=== PATIENT | male | born 1935 | race Caucasian/White ===

== ENCOUNTER 2016-11-17 12:04 | Emergency (ER) | payer MEDICARE ==
[2016-11-17 12:17] VITALS: TEMP 98.6
[2016-11-17] MEDS ORDERED: SODIUM CHLORIDE 0.9% (FLUSH) 10 ML SYG IV PRN (12:48)
--- NOTE | 2016-11-17 13:03 | ED.PDOC ---
History of Present Illness - General Chief Complaint: Skin/Abrasion/Tear Stated Complaint: Left chest wall skin opening Time Seen by Provider: 11/17/16 12:16 Source: patient, family Exam Limitations: no limitations - History of Present Illness Initial Comments: PT PRESENTS TO THE ED AFTER NOTICING A HOLE IN HIS LEFT CHEST WALL THIS AM. THE HOLE EXPOSES THE CORNER OF THE PACEMAKER/DEFIB IN HIS CHEST. PT DENIES, PAIN, SWELLING, BLEEDING, OR DRAINAGE TO THE AREA. PT DENIES ANY CHEST WALL TRAUMA. PT DENIES CHEST PAIN, FEVER, CHILLS, OR INCREASED SOB. PT SEES DR. BELLAMY FOR CARDIOLOGY. PT HAD PACEMAKER/DEFIB REPLACED IN JULY OF 2016. Timing/Duration: this morning Severity: mild Location: torso - LEFT UPPER CHEST WALL Improving Factors: nothing Worsening Factors: nothing Associated Symptoms: denies symptoms Allergies/Adverse Reactions: Allergies Lorazepam [From Ativan] Allergy (Verified 11/17/16 12:21) Home Medications: Ambulatory Orders Albuterol Sulfate Nebs [Proventil Nebs] 2.5 mg INH QID 11/17/16 Aspirin [Aspirin Adult Low Dose] 81 mg PO DAILY 11/17/16 Carvedilol [Coreg] 12.5 mg PO BID 11/17/16 Clonazepam 0.5 mg PO Q6HR PRN 11/17/16 Ramipril 5 mg PO DAILY 11/17/16 Sertraline HCl [Zoloft] 200 mg PO BID 11/17/16 Simvastatin [Zocor] 40 mg PO DAILY 11/17/16 Review of Systems - Review of Systems Constitutional: Denies: chills, fever EENTM: Denies: nose congestion, throat pain Respiratory: Denies: cough, short of breath Cardiology: Denies: chest pain, palpitations Gastrointestinal/Abdominal: Denies: abdominal pain, diarrhea, vomiting Skin: States: see HPI, other - SKIN TEAR TO THE LEFT CHEST. Denies: rash Neurological: States: no symptoms reported Endocrine: States: no symptoms reported Hematologic/Lymphatic: States: no symptoms reported Past Medical History (General) - Patient Medical History Hx Stroke: No Hx of COPD: Yes Hx Cardiac Disorders: Yes Hx Congestive Heart Failure: No Hx Pacemaker: Yes - defib/pacemaker Hx Diabetes: No Surgical History: cholecystectomy - Vaccination History Hx Influenza Vaccination: Yes - 2016 Hx Pneumococcal Vaccination: - unknown - Social History Hx Tobacco Use: Yes Hx Chewing Tobacco Use: Yes - Female History Patient is a Female of Child Bearing Age (10 -59 yrs old): No Family Medical History - Family History Father Living Status: Hx Cardiac Disease: Yes Physical Exam - Physical Exam General Appearance: Alert, Comfortable, Frail, No apparent distress Eyes, Ears, Nose, Throat Exam: normal ENT inspection Neck: full range of motion, normal inspection Cardiovascular/Chest: regular rate, rhythm, no murmur Respiratory: chest non-tender - 1CM DIAMETER SKIN TEAR TO THE LEFT CHEST WALL, EXPOSING THE CORNER OF THE PACEMAKER/DEFIB DEVICE, NO SWELLING, NO ERYTHEMA, NO DRAINAGE, NO BLEEDING NOTED., no respiratory distress, no accessory muscle use, decreased breath sounds, wheezing - FAINT Gastrointestinal/Abdominal: non tender, soft Extremity: normal inspection Neurologic: alert, normal mood/affect, oriented x 3 Skin Exam: warm/dry, normal color Skin Problem Location: torso Progress - Progress Progress: 11/17/16 13:[address] BELLAMY WHO ADVISES TRANSFER TO [facility] FOR EVALUATION. - Results/Orders Results/Orders: 11/17/16 12:45 EKG STAT 11/17/16 12:48 IV Care:Saline Lock per Protoc QSHIFT Telemetry .ONCE Pulse Ox Stat Laboratory Results - last 24 hr 11/17/16 12:48 WBC 6.9 RBC 4.16 L Hgb 12.4 L Hct 36.6 L MCV 87.8 MCH 29.8 MCHC 33.8 RDW 14.0 Plt Count 189 MPV 7.6 Absolute Neuts (auto) 4.20 Absolute Lymphs (auto) 1.70 Absolute Monos (auto) 0.60 Absolute Eos (auto) 0.30 Absolute Basos (auto) 0.10 Neutrophils % 60.2 Lymphocytes % 25.1 Monocytes % 8.5 Eosinophils % 5.0 Basophils % 1.2 PT 10.9 INR 0.960 PTT (SP) 34.2 Sodium 138 Potassium 3.9 Chloride 101 Carbon Dioxide 31 Anion Gap 9.9 L BUN 18 Creatinine 0.71 BUN/Creatinine Ratio 25.4 H Random Glucose 104 Serum Osmolality 277.9 Calcium 8.8 Magnesium 2.2 Creatine Kinase 80 CK-MB (CK-2) 4.1 CK-MB (CK-2) % Not Reportable Troponin I 0.02 B-Natriuretic Peptide 110.0 H - EKG/XRAY/CT EKG: Sinus - AV SEQUENTIAL PACED RHYTHM @ 61BPM, , Unchanged from - Oct Comments: ND 158, QRS 204, QTC 525 Departure - Departure Clinical Impression: Chest wall fistula, Cardiac pacemaker in situ Time of Disposition: 13:10 Disposition: Transfer to Hospital Condition: Good Departure Forms: ED Discharge - Pt. Copy, Patient Portal Self Enrollment Referrals: Moris Yang MD [Primary Care Provider] - 1-2 Weeks Home Medications: Ambulatory Orders Albuterol Sulfate Nebs [Proventil Nebs] 2.5 mg INH QID 11/17/16 Aspirin [Aspirin Adult Low Dose] 81 mg PO DAILY 11/17/16 Carvedilol [Coreg] 12.5 mg PO BID 11/17/16 Clonazepam 0.5 mg PO Q6HR PRN 11/17/16 Ramipril 5 mg PO DAILY 11/17/16 Sertraline HCl [Zoloft] 200 mg PO BID 11/17/16 Simvastatin [Zocor] 40 mg PO DAILY 11/17/16 Transfer to Outside Facility - Transfer Information Accepting Provider:: DR. WESTFALL Accepting Facility: [facility] Reason for Transfer: required specialist not available
--- NOTE | 2016-11-17 13:26 | RAD ---
EXAM DESCRIPTION: XR CHEST 2 VIEWS CLINICAL HISTORY: pacemaker erosion through skin COMPARISON: October 31, 2013 FINDINGS: Two-view chest x-ray shows cardiomediastinal silhouette and pulmonary vasculature to be within normal limits. Postsurgical changes from sternotomy are seen. Multiple lead left subclavian transvenous cardiac pacer defibrillator is seen in place with generator pack over the left mid chest. Left thoracotomy changes are again seen with surgical clips in the left mid upper chest. The lungs are hyperinflated. Chronic blunting probably representing chronic pleural thickening in the left costophrenic angle is seen with mild elevation of the hemidiaphragm. Bilateral interstitial nodular changes in the lung apices with apical pleural thickening is seen. Mild disc degenerative changes of the spine. IMPRESSION: Emphysematous changes to the chest are seen. Chronic changes to the chest are noted. No interval change. Electronically signed by: Mitchell Camacho MD 11/17/2016 13:24
[2016-11-17 13:30] VITALS: BP 126/60; O2SAT 99
== END 2016-11-17 13:50 | disposition short-term general hospital (02) ==
LOC: ER 12:04
DX: J86.0 Pyothorax with fistula (principal); J44.9 Chronic obstructive pulmonary disease, unspecified; Z95.810 Presence of automatic (implantable) cardiac defibrillator; Z88.8 Allergy status to other drugs, medicaments and biological substances; Z79.82 Long term (current) use of aspirin; Z79.899 Other long term (current) drug therapy; Z87.891 Personal history of nicotine dependence

== ENCOUNTER 2016-12-19 14:25 | Observation (INO) | payer MEDICARE ==
[2016-12-19] MEDS ORDERED: SODIUM CHLORIDE 0.9% (FLUSH) 10 ML SYG IV PRN ×2 (14:40→18:30)
[2016-12-19] MEDS ORDERED: IPRATROPIUM/ALBUTEROL 3 ML VIAL INH ONE (14:40)
--- NOTE | 2016-12-19 15:05 | RAD ---
EXAM DESCRIPTION: Chest,1 View CLINICAL HISTORY: 81 years Male, SOB COMPARISON: November 17, 2016 TECHNIQUE: AP portable chest FINDINGS: Chronic changes of emphysema are present. There is volume loss on the left. There is blunting of the left costophrenic angle. Multilead pacing device is observed. IMPRESSION: 1. Chronic changes, no acute process Electronically signed by: Michoacano Santos MD 12/19/2016 3:05 PM [facility] [employer]PER[employer]
[2016-12-19] MEDS ORDERED: MAGNESIUM SULFATE PREMIX 2GM 2 GM in PREMIX BAG 1 BAG IVPB ONE (15:28)
[2016-12-19] MEDS ORDERED: methylPREDNISolone SODIUM SUC 125 MG/2 ML VIAL IV ONE (15:28)
[2016-12-19] MEDS ORDERED: IPRATROPIUM/ALBUTEROL 3 ML VIAL NEB ONE (15:28)
[2016-12-19] MEDS ORDERED: MAGNESIUM SULFATE PREMIX 2GM 50 ML IVPB ONE (15:40)
--- NOTE | 2016-12-19 16:17 | ED.PDOC ---
History of Present Illness - General Chief Complaint: Respiratory Problem Stated Complaint: shortness of breath Time Seen by Provider: 12/19/16 14:40 Source: patient, family - History of Present Illness Initial Comments: PT COMPLAINS OF PROGRESSIVELY WORSENING SOB AND COUGH DESPITE NEB TX AND HOME O2. PT RECENTLY DISCHARGED FROM [facility] AFTER A [facility] ADMISSION SECONDARY TO PACEMAKER SITE INFECTION. Severity: moderate Possible Cause: chronic episodes Improving Factors: immobilization Worsening Factors: medication Associated Symptoms: cough Allergies/Adverse Reactions: Allergies Lorazepam [From Ativan] Allergy (Verified 12/19/16 14:40) Home Medications: Ambulatory Orders Albuterol Sulfate Nebs [Proventil Nebs] 2.5 mg INH QID 11/17/16 Aspirin [Aspirin Adult Low Dose] 81 mg PO DAILY 11/17/16 Carvedilol [Coreg] 12.5 mg PO BID 11/17/16 Clonazepam 0.5 mg PO Q6HR PRN 11/17/16 Ramipril 5 mg PO DAILY 11/17/16 Sertraline HCl [Zoloft] 100 mg PO BID 11/17/16 Simvastatin [Zocor] 40 mg PO DAILY 11/17/16 Aclidinium [place] [Tudorza Pressair] 400 mcg IN DAILY 12/19/16 Review of Systems - Review of Systems Constitutional: Denies: chills, fever EENTM: Denies: ear pain, throat pain Respiratory: States: see HPI, cough, short of breath Cardiology: Denies: chest pain, palpitations Gastrointestinal/Abdominal: Denies: nausea, vomiting Musculoskeletal: Denies: joint pain, joint swelling Skin: Denies: change in color, rash Neurological: States: no symptoms reported Endocrine: States: no symptoms reported Hematologic/Lymphatic: States: no symptoms reported Past Medical History (General) - Patient Medical History Hx Stroke: No Hx of COPD: Yes Hx Cardiac Disorders: Yes Hx Congestive Heart Failure: No Hx Pacemaker: Yes - defib/pacemaker Hx Diabetes: No Surgical History: pacemaker - Vaccination History Hx Influenza Vaccination: Yes - 2016 Hx Pneumococcal Vaccination: - unknown - Social History Hx Tobacco Use: Yes Hx Chewing Tobacco Use: Yes - Activities of Daily Living Hospice Agency (if applicable):: None - Female History Patient is a Female of Child Bearing Age (10 -59 yrs old): No Patient : No Family Medical History - Family History Father Living Status: Hx Cardiac Disease: Yes Physical Exam - Physical Exam General Appearance: Alert, Frail Eyes, Ears, Nose, Throat Exam: normal ENT inspection, pharynx normal Neck: full range of motion, normal inspection Respiratory: decreased breath sounds, wheezing Cardiovascular/Chest: regular rate, rhythm, no murmur Gastrointestinal/Abdominal: non tender, soft Extremity: normal range of motion, non-tender, normal inspection Neurologic: alert, normal mood/affect, oriented x 3 Skin Exam: normal color, warm/dry Progress - Progress Progress: 12/19/16 16:18 PT REPORTS SOME IMPROVEMENT AFTER DUONEB BY EMS AND DUONEB IN THE ED. PTS BREATH SOUNDS REMAIN DIMINISHED ON EXAM. ADDITIONAL NEB TX ORDERED ALONG WITH IV MAG, IV SOLUMEDROL. LABS AND XRAY FINDINGS DISCUSSED WITH PT WHO AGREES WITH PLAN TO ADMIT FOR FURTHER OBSERVATION AND TREATMENT. - Results/Orders Results/Orders: Laboratory Tests 12/19/16 14:55 WBC 7.8 RBC 3.54 L Hgb 10.4 L Hct 30.9 L MCV 87.4 MCH 29.3 MCHC 33.6 RDW 14.2 Plt Count 157 MPV 7.3 L Absolute Neuts (auto) 6.20 Absolute Lymphs (auto) 0.90 L Absolute Monos (auto) 0.60 Absolute Eos (auto) 0.00 Absolute Basos (auto) 0.00 Neutrophils % 79.3 H Lymphocytes % 11.9 L Monocytes % 8.3 Eosinophils % 0.2 L Basophils % 0.3 Sodium 137 Potassium 3.5 L Chloride 95 L Carbon Dioxide 33 H Anion Gap 12.5 BUN 13 Creatinine 0.64 BUN/Creatinine Ratio 20.3 H Random Glucose 105 Serum Osmolality 274.3 L Calcium 8.6 Total Bilirubin 0.4 AST 56 H ALT 30 Alkaline Phosphatase 49 B-Natriuretic Peptide 267.0 H* Serum Total Protein 6.6 Albumin 3.3 Globulin 3.3 Albumin/Globulin Ratio 1.0 L - EKG/XRAY/CT EKG: LBBB - PACED RHYTHM @80BPM, [place] 166, QRS 204, QTC 576 Xray Comments: CXR: NO ACUTE DISEASE PER RAD Departure - Departure Clinical Impression: COPD exacerbation Time of Disposition: 16:22 Disposition: Admit Patient Condition: Fair Departure Forms: ED Discharge - Pt. Copy, Patient Portal Self Enrollment Home Medications: Ambulatory Orders Albuterol Sulfate Nebs [Proventil Nebs] 2.5 mg INH QID 11/17/16 Aspirin [Aspirin Adult Low Dose] 81 mg PO DAILY 11/17/16 Carvedilol [Coreg] 12.5 mg PO BID 11/17/16 Clonazepam 0.5 mg PO Q6HR PRN 11/17/16 Ramipril 5 mg PO DAILY 11/17/16 Sertraline HCl [Zoloft] 100 mg PO BID 11/17/16 Simvastatin [Zocor] 40 mg PO DAILY 11/17/16 Aclidinium [place] [Tudorza Pressair] 400 mcg IN DAILY 12/19/16 Decision To Admit - Decistion To Admit Decision to Admit Reason: Admit from ER Decision to Admit Date: 12/19/16 - CASE DISCUSSED WITH DR. DIAL Decision to Admit Time: 16:22
--- NOTE | 2016-12-19 16:32 | HP ---
HISTORY OF PRESENT ILLNESS: This 81 year-old white male is admitted to the hospital from the Emergency Room after noting worsening shortness of breath for the last 3 or 4 days. He apparently lives at home alone with a dog. He had a significant problem a month ago when he came to the Emergency Room when the pocket of his newly placed pacemaker apparently had eroded and required special wound care at [place]. He was subsequently discharged a few days ago home and now has been noticing increasing cough with whitish sputum for the last 3 days. He is on evening oxygen while he is asleep. He takes medication nebulizers. He especially gets more shortness of breath when he gets "aggravated." He has had no fever or chills. He has been under stress with his having about 6 months ago. She apparently was an invalid that he spent most of the last 3 or 4 years caring for. His appetite has decreased. He has been losing some weight. He is admitted to the hospital for stabilization, reevaluation and observation overnight. PAST MEDICAL HISTORY: 1. Significant emphysema. 2. Mild congestive heart failure in the past. PAST SURGICAL HISTORY: 1. Gallbladder removal by Dr. Owen. 2. Half of his left lung removed in 1998 because of lung cancer with no required chemotherapy or radiation afterwards after it was completely removed. CURRENT MEDICATIONS: Please refer to nurses' notes for a list of verified home medications. ALLERGIES: LORAZEPAM. FAMILY HISTORY: Positive for coronary artery disease, strokes and cancer. 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 REVIEW OF SYSTEMS: Some weight loss recently. HEENT: No significant hearing or vision disturbances. LUNGS: Shortness of breath with chronic cough and whitish sputum production more so in the last 3 days. CARDIOVASCULAR: No significant chest pains or palpitations. ABDOMEN: No nausea or vomiting, diarrhea or blood in the stools. GENITOURINARY: No dysuria. EXTREMITIES: Fairly strong with no significant edema. NEUROLOGIC: No weaknesses focal but he does express generalized weakness. PHYSICAL EXAMINATION: VITAL SIGNS: Temperature up to 100.2, pulse 79, blood pressure 137/73, respirations 28, pulse oximetry 86% on room air. GENERAL: The patient is fairly alert, awake and communicative. HEENT: Unremarkable. NECK: No carotid bruits. CHEST: Lungs have diminished breath sounds which are fairly equal on both sides with occasional rhonchi in the lateral lung vasques. CARDIOVASCULAR: Tones are regular, slightly distant. ABDOMEN: Soft with no organomegaly, masses or tenderness. EXTREMITIES: No significant edema. Fairly good though slightly decreased muscle tone. NEUROLOGIC: No focal neurological deficits. LABORATORY: White count 7,800, hemoglobin 10.4, neutrophils 79%. Chemistries showed potassium low at 3.5, CO2 high at 33, BUN 13, creatinine 0.64, glucose 105. Beta natriuretic peptide 267, albumin 3.3. Urine pending. Blood culture pending. Chest x-ray shows advanced chronic obstructive pulmonary disease with no other acute findings noted. ASSESSMENT: 1. Chronic obstructive pulmonary disease with an acute exacerbation requiring bronchodilators, pulmonary hygiene, corticosteroid administration and antibiotics. 2. Hypokalemia with supplementation started. 3. Mild congestive heart failure with elevated BNP. 4. Febrile illness. 5. Acute bronchitis. PLAN: The patient will be continued on Azithromycin and Rocephin as well as tapering doses of corticosteroids. Potassium supplements. Evaluate with ambulation study by Respiratory Therapy in the morning with early ambulation. Reevaluate at that time. Will have followup with Dr. Yang in the clinic when clinically stable. #[id number] [facility]
[2016-12-19] MEDS ORDERED: MAGNESIUM HYDROXIDE 30 ML UD PO PRN (18:30)
[2016-12-19] MEDS ORDERED: LEVALBUTEROL NEBS 1.25 MG/3 ML VIAL INH PRN (18:30)
[2016-12-19] MEDS ORDERED: HYDROcodone 5MG/APAP 325MG 1 EA TAB PO PRN (18:30)
[2016-12-19] MEDS ORDERED: IV SET AND CAP CHANGE INJ INJ SCH (18:30)
[2016-12-19] MEDS ORDERED: KCL 40MEQ/NS 1,000 ML IVS PRN (18:39)
[2016-12-19] MEDS ORDERED: NICOTINE PATCH 14 MG TD PRN (18:41)
[2016-12-19] MEDS ORDERED: AZITHROMYCIN 250 MG TAB PO SCH (19:00)
[2016-12-19] MEDS ORDERED: SODIUM CHL 0.9% 50ML MIN-BAG+ 50 ML IVPB ONE ×2 (19:18→20:51)
[2016-12-19] MEDS ORDERED: cefTRIAXone SODIUM 1 GM VIAL ONE ×2 (19:18→20:51)
[2016-12-19] MEDS: cefTRIAXone SODIUM 1 GM in SODIUM CHL 0.9% 50ML MIN-BAG+ 50 ML IVPB SCH (19:27)
[2016-12-19] MEDS: POTASSIUM CHLORIDE 10 MEQ TAB PO SCH (19:28)
[2016-12-19] MEDS: IPRATROPIUM/ALBUTEROL 3 ML VIAL INH SCH (19:50)
[2016-12-19] MEDS: CARVEDILOL 12.5 MG TAB PO SCH (21:03)
[2016-12-19] MEDS: SERTRALINE HCL 50 MG TAB PO SCH (21:03)
[2016-12-20] MEDS ORDERED: OMEPRAZOLE CAP 20 MG CAP PO SCH (06:30)
[2016-12-20] MEDS: cefTRIAXone SODIUM 1 GM in SODIUM CHL 0.9% 50ML MIN-BAG+ 50 ML IVPB SCH (06:46)
[2016-12-20] MEDS ORDERED: SODIUM CHL 0.9% 50ML MIN-BAG+ 0 ML IVPB ONE (07:53)
[2016-12-20] MEDS ORDERED: cefTRIAXone SODIUM 1 GM VIAL ONE (07:54)
[2016-12-20] MEDS: POTASSIUM CHLORIDE 10 MEQ TAB PO SCH (08:11)
[2016-12-20] MEDS ORDERED: SODIUM CHLORIDE 0.9% 10 ML VIAL IV PRN (08:23)
[2016-12-20] MEDS: IPRATROPIUM/ALBUTEROL 3 ML VIAL INH SCH (08:50)
[2016-12-20] MEDS ORDERED: ASPIRIN EC 81 MG TAB PO SCH (09:00)
[2016-12-20] MEDS ORDERED: RAMIPRIL 5 MG CAP PO SCH (09:00)
[2016-12-20] MEDS ORDERED: predniSONE 20 MG TAB PO SCH (09:00)
[2016-12-20] MEDS: SERTRALINE HCL 50 MG TAB PO SCH (09:07)
[2016-12-20] MEDS: CARVEDILOL 12.5 MG TAB PO SCH (09:08)
[2016-12-20 11:30] VITALS: BP 126/63; TEMP 98.3; O2SAT 98
--- NOTE | 2016-12-20 14:22 | DS ---
DISCHARGE DIAGNOSIS: 1. Chronic obstructive pulmonary disease with an acute exacerbation requiring bronchodilators, pulmonary hygiene, corticosteroid administration and antibiotics. 2. Febrile illness, probably related to an underlying acute bronchitis. 3. Hypokalemia, improved after supplementation. 3. Mild congestive heart failure with elevated beta natriuretic peptide. HISTORY OF PRESENT ILLNESS: This 81-year-old, white male was admitted to the hospital from the Emergency Room because of worsening shortness of breath and cough for the last 3 or 4 days. He lives by himself and requires currently significant help and his family is present to try to assist with his ongoing care. He recently had erosion of a pacemaker pocket requiring special wound care in [place]. He has been under pressure and stress with the of his in the last 6 months. He was admitted to the hospital for evaluation and stabilization overnight. His gallbladder has been removed by Dr. Owen in the past and half his left lung was removed because of lung cancer about 18 years ago. He still smokes and is encouraged to stop. LABORATORY: Hemoglobin 10.4, white count 7,800. Chemistry shows potassium up from 3.5 to 4.8 with supplementation. CO2 elevated at 33, BUN 18, creatinine 0.74, glucose after some corticosteroids was up to 156. AST elevated at 56, beta natriuretic peptide elevated at 267. TSH normal at 0.72, albumin 3.3. Urinalysis showed some mild proteinuria, ketonuria, hematuria, and mild pyuria with urine culture negative at 24 hours, sputum culture negative at 24 hours. Blood culture negative. Chest x-ray did show significant chronic obstructive pulmonary disease with no acute findings evident. HOSPITAL COURSE: The patient was feeling much improved with less fever at the time of discharge. The patient was ready for continued outpatient therapy and followup with Dr. Yang at the time of his discharge. PLAN: He is discharged home on his regular diet. Encourage increased nutrition with protein supplementation to allow him to gain a little extra weight. Increase activity as possible. Followup with Dr. Yang in the next 7 days. Continue home medications. In addition, he will be on azithromycin 250 mg a day for 5 days, Keflex 500 mg t.i.d. for 7 days, and nicotine patch 14 mg a day as needed for desire to smoke. Potassium chloride 10 mEq a day for the next month and prednisone 10 mg q.a.m. for the next 12 days. He is encouraged to stop all smoking, breathe deeply to assist with removing the febrile condition. Try vitamins daily. Return if not improving. #[id number] [facility]
== END 2016-12-20 12:54 | disposition home or self-care (01) ==
LOC: ER 14:25 → MS 16:31 → INTOOBSV 16:31
PROVIDERS: ADMIT Emergency Medicine; ATTEND Emergency Medicine
DX: J44.1 Chronic obstructive pulmonary disease with (acute) exacerbation (principal); R50.9 Fever, unspecified; E87.6 Hypokalemia; I50.9 Heart failure, unspecified; R06.02 Shortness of breath; F17.210 Nicotine dependence, cigarettes, uncomplicated; I44.7 Left bundle-branch block, unspecified; Z99.81 Dependence on supplemental oxygen; Z79.82 Long term (current) use of aspirin; Z79.899 Other long term (current) drug therapy; Z88.8 Allergy status to other drugs, medicaments and biological substances; Z95.0 Presence of cardiac pacemaker; Z60.2 Problems related to living alone; Z63.4 Disappearance and death of family member; Z85.118 Personal history of other malignant neoplasm of bronchus and lung; Z90.2 Acquired absence of lung [part of]; Z90.49 Acquired absence of other specified parts of digestive tract; Z82.49 Family history of ischemic heart disease and other diseases of the circulatory system; Z82.3 Family history of stroke; Z80.9 Family history of malignant neoplasm, unspecified
CPT/HCPCS: 36415 ×2; 71010; 80048; 80053; 81001; 83880; 84443; 85025; 87040; 87070; 87086; 93005; 94640 ×3; 94760 ×2; 96365; 96366 ×2; 96367; 96375; 99284; G0378; J0696 ×2; J2930; J3475; J3480; J7050 ×2; J7512; J7620 ×4; Q0144

== ENCOUNTER → 2017-05-16 | Outpatient (CLI) | payer MEDICARE | LOC: GMAM 14:32 | PROVIDERS: ATTEND Family Medicine | DX: E53.8 Deficiency of other specified B group vitamins (principal); Z12.5 Encounter for screening for malignant neoplasm of prostate | CPT/HCPCS: 82607; G0103 ==

== ENCOUNTER → 2017-10-02 | Outpatient (CLI) | payer MEDICARE | END | disposition home or self-care (01) | LOC: GMAM 16:37 | PROVIDERS: ATTEND Family Medicine | DX: E53.8 Deficiency of other specified B group vitamins (principal) ==

== ENCOUNTER → 2018-05-03 | Outpatient (CLI) | payer MEDICARE | LOC: GMAM 11:22 | PROVIDERS: ATTEND Family Medicine | DX: E53.8 Deficiency of other specified B group vitamins (principal) ==

== ENCOUNTER → 2018-12-10 | Outpatient (CLI) | payer MEDICARE | LOC: GMAM 14:29 | PROVIDERS: ATTEND Family Medicine | DX: E53.8 Deficiency of other specified B group vitamins (principal); F32.0 Major depressive disorder, single episode, mild; Z12.5 Encounter for screening for malignant neoplasm of prostate | CPT/HCPCS: 82607; 84439; 84443; G0103 ==

== ENCOUNTER → 2018-12-11 | Outpatient (CLI) | payer MEDICARE | LOC: GMAM 18:05 | PROVIDERS: ATTEND Family Medicine | DX: D64.89 Other specified anemias (principal) ==

== ENCOUNTER → 2018-12-12 | Outpatient (CLI) | payer MEDICARE ==
--- NOTE | 2018-12-13 10:00 | CT ---
EXAM DESCRIPTION: Chest w/o Contrast CLINICAL HISTORY: 83 years, Male, COPD COMPARISON: Chest x-ray December 19, 2016 TECHNIQUE: Thin-section noncontrast axial CT images are obtained according to our protocol. Reconstructed MPR images are created and reviewed as well. FINDINGS: Lungs: Abnormal density is seen in the subpleural anterior segment of the right upper lobe which measures 1.8 x 1.2 cm. Differential considerations would include chronic subpleural scarring, focal pneumonia or infiltrating neoplasm such as alveolar cell carcinoma. Fine-needle aspiration biopsy/culture might be considered if lesion shows evidence of growth on follow up studies. Lesser patchy density against the mediastinum is seen more medially which measures 1.6 x 0.5 cm. 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 2 mm subpleural nodule in the right upper lobe. Centrilobular and paraseptal emphysematous changes are extensive bilaterally. Sternotomy wires are present. Subpleural scarring in the right middle lobe and anterior basal segment right lower lobe. Mediastinum: Lymph nodes are normal in size. Normal vascular contours. Heart size is large with no pericardial effusion. Positive coronary arterial calcification with cardiac pacer in place with electrode leads in the region of the right atrium and right ventricular apex. Ectatic ascending aorta measures 4.2 cm in diameter. Left pulmonary artery is enlarged more than right suggesting pulmonary hypertension. Chest wall/axilla: No mass or adenopathy. Sternotomy wires are present. Lower neck/supraclavicular: No mass or adenopathy. Thyroid gland is inhomogeneous but small. Correlate with sono findings if indicated. Upper abdomen: Unremarkable upper abdominal viscera. Coronal and sagittal reformatted images confirm the findings. On the sagittal images, the right upper lobe subpleural mass appears partly calcified which would argue for chronic scarring rather than a malignant lesion. Imaging follow-up rather than biopsy might be considered with this finding. The lesion could be biopsied if there is evidence of growth on follow-up CT images at six-month intervals. IMPRESSION: Anterior segment right upper lobe subpleural mass on 0.8 x 1.2 cm is partly calcified. Follow-up as per recommendations below. 2017 Fleischner Society Recommendations for Multiple Solid Lung Nodules Follow-Up base on size (average of long- and short-axis diameters). Use most suspicious nodule for followup. Nodule Size <6 mm Low-Risk Patient: No routine follow-up Nodule Size <6 mm High-Risk Patient: Optional CT at 12 months Nodule Size 6-8 mm Low-Risk Patient: CT at 3-[address] at 18-24 months Nodule Size 6-8 mm High-Risk Patient: CT at 3-6 months then at 18-24 months Nodule Size (mm) >8 Low-Risk Patient: CT at 3-6 months, then consider CT at 18-24 months Nodule Size (mm) >8 High-Risk Patient: CT at 3-6 months, then at 18-24 months This exam was performed according to our departmental dose-optimization program, which includes automated exposure control, adjustment of the mA and/or kV according to patient size and/or use of iterative reconstruction technique. Total DLP equals 228.21 mGycm. Electronically signed by: Evans Phelps MD 12/13/2018 9:57 AM [facility]
== END ==
LOC: CT 13:30
PROVIDERS: ATTEND Family Medicine
DX: J44.9 Chronic obstructive pulmonary disease, unspecified (principal); Z85.118 Personal history of other malignant neoplasm of bronchus and lung; Z87.891 Personal history of nicotine dependence

== ENCOUNTER → 2019-01-30 | Outpatient (CLI) | payer MEDICARE | LOC: YCHH 11:50 | PROVIDERS: ATTEND Family Medicine | DX: D64.9 Anemia, unspecified (principal) ==

== ENCOUNTER → 2019-02-13 | Outpatient (CLI) | payer MEDICARE | LOC: YCHH 11:03 | PROVIDERS: ATTEND Family Medicine | DX: D64.9 Anemia, unspecified (principal); E53.8 Deficiency of other specified B group vitamins ==

== ENCOUNTER → 2019-09-19 | Outpatient (CLI) | payer MEDICARE | LOC: YCHH 15:02 | PROVIDERS: ATTEND Family Medicine | DX: D64.9 Anemia, unspecified (principal); N18.9 Chronic kidney disease, unspecified; E78.5 Hyperlipidemia, unspecified ==

== ENCOUNTER → 2020-02-07 | Outpatient (CLI) | payer MEDICARE | LOC: YCHH 11:37 | PROVIDERS: ATTEND Family Medicine | DX: E53.8 Deficiency of other specified B group vitamins (principal); D64.9 Anemia, unspecified; E78.5 Hyperlipidemia, unspecified; R79.89 Other specified abnormal findings of blood chemistry ==

== ENCOUNTER → 2020-03-27 | Outpatient (CLI) | payer MEDICARE | LOC: YCHH 11:50 | PROVIDERS: ATTEND Family Medicine | DX: D64.9 Anemia, unspecified (principal); R79.89 Other specified abnormal findings of blood chemistry; E78.5 Hyperlipidemia, unspecified ==

== ENCOUNTER → 2020-04-28 | Outpatient (CLI) | payer MEDICARE | LOC: YCHH 14:46 | PROVIDERS: ATTEND Family Medicine | DX: R19.5 Other fecal abnormalities (principal); D50.9 Iron deficiency anemia, unspecified; R79.0 Abnormal level of blood mineral; R82.998 Other abnormal findings in urine ==

== ENCOUNTER → 2020-10-01 | Outpatient (CLI) | payer MEDICARE | LOC: YCHH 11:40 | PROVIDERS: ATTEND Family Medicine | DX: R79.89 Other specified abnormal findings of blood chemistry (principal); D64.9 Anemia, unspecified; E78.5 Hyperlipidemia, unspecified ==